=== PATIENT | male | born 1970 | race Caucasian/White ===

== ENCOUNTER 2018-07-10 13:43 | Emergency (ER) | payer OTHER ==
[~2018-07-10] VITALS: Ht 177.8 cm; Wt 77.1 kg
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
[2018-07-10] MEDS ORDERED: IBUPROFEN 600 MG TABLET PO ONE ×2 (14:58→15:00)
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
--- NOTE | 2018-07-10 15:36 | NUR ---
Patient discharged to home in stable condition. Written and verbal after care instructions given. Patient verbalizes understanding of instruction.
[2018-07-10 15:37] VITALS: BP 119/78
== END 2018-07-10 15:37 | disposition home or self-care (01) ==
LOC: ER 13:43
DX: S50.11XA Contusion of right forearm, initial encounter (principal); S09.8XXA Other specified injuries of head, initial encounter; J45.909 Unspecified asthma, uncomplicated; Z60.2 Problems related to living alone; Y08.89XA Assault by other specified means, initial encounter; Y93.89 Activity, other specified; Y92.89 Other specified places as the place of occurrence of the external cause; Y99.8 Other external cause status
CPT/HCPCS: 73090-TC; 73110

== ENCOUNTER 2019-11-28 05:24 | Emergency (ER) | payer OTHER ==
[~2019-11-28] VITALS: Ht 177.8 cm; Wt 74.8 kg
[2019-11-28 05:25] VITALS: BP 120/71
--- NOTE | 2019-11-28 05:47 | NUR ---
Pt medically cleared for booking. Written and verbal after care instructions given. Patient verbalizes understanding of instruction.
== END 2019-11-28 05:59 | disposition home or self-care (01) ==
LOC: ER 05:24
DX: Z02.89 Encounter for other administrative examinations (principal)

== ENCOUNTER 2023-09-21 15:52 | Emergency (ER) | payer OTHER ==
[~2023-09-21] VITALS: Ht 177.8 cm; Wt 77.1 kg
[2023-09-21 16:04] VITALS: BP 135/72; TEMP 98; O2SAT 98
== END 2023-09-21 16:22 | disposition left against medical advice (07) ==
LOC: ER 15:58
DX: T14.8XXA Other injury of unspecified body region, initial encounter (principal); Z53.21 Procedure and treatment not carried out due to patient leaving prior to being seen by health care provider; W54.0XXA Bitten by dog, initial encounter; Y93.89 Activity, other specified; Y92.89 Other specified places as the place of occurrence of the external cause; Y99.8 Other external cause status